=== PATIENT | male | born 1980 | race Caucasian/White ===

== ENCOUNTER 2024-11-27 01:05 | Day surgery (SDC) | payer BC, SELFPAY ==
[2024-11-17 13:49] VITALS: BMI 23.1
[2024-11-27 11:45] VITALS: BP 135/90; PULSE 60; RESP 12; TEMP 36.6; O2SAT 100
[2024-11-27] MEDS: LACTATED RINGERS 1,000 ML 150 ML IV CONT (11:53)
--- NOTE | 2024-11-27 12:08 | P.PNAN_ITS ---
Anes - Initial Pre Proc Eval Procedure: Operation Date: 11/27/24 13:00 Proposed Procedures p Screening Colonoscopy - Lazaro López MD Date/Time: 11/27/24 12:08 Surgeon: Lazaro López MD Pre Op Diagnosis: Screening Patient Data Age: 44 Gender: M Height: 1.88 m Weight: 79.8 kg Last Vital Signs Temp 36.6 C 11/27/24 11:45 Pulse 60 11/27/24 11:45 Resp 12 11/27/24 11:45 BP 135/90 11/27/24 11:45 Pulse Ox 100 11/27/24 11:45 O2 Del Method Room Air 11/27/24 11:45 Allergies Allergy/AdvReac Type Severity Reaction Status Date / Time No Known Allergies Allergy Verified 11/27/24 11:44 Home Medications ?Medication ?Instructions ?Recorded ?Confirmed ?Type No Home Medications 09/30/24 11/17/24 History Patient hx anesthesia problems: none Family hx anesthesia problems: none Results Review: All pre-operative results and documents have been reviewed as part of the pre- operative evaluation. [facility] Family History Family History Father Family history of malignant neoplasm Grandparent Carcinoma of colon Social History Social History Smoking status: Never smoker Second hand tobacco smoke exposure: No Alcohol intake: current Drinks per week: 6 Substance use: never Substance use type: does not use Current Housing: Decline to Answer Concerned About Future Housing: Decline to Answer Difficulty Paying Gas/Electric Bills: Decline to Answer Difficulty Paying for Meds: Decline to Answer Currently Unemployed: Decline to Answer Education: Decline to Answer Difficulty w/ Childcare or Family Care: Decline to Answer Living arrangements: with family Occupation/Education: occupation Gender identity (if verbalized by the patient): Male Sexual Orientation (if Verbalized by the Patient): Straight or Heterosexual Spiritual care concerns: No Agree to blood products: Yes Anes - Eval Final PreProcedure Day of Procedure 11/27/24 12:08 Patient weight: normal Heart: regular rate and rhythm Lungs: clear to auscultation Airway: Mallampati scale class II and special considerations poor opening Neurological: alert and oriented Last oral intake: >/= 8 hours ASA classification: I Emergent: no Anesthetic plan: proceed Anesthesia type and monitoring: general GIVS and standard monitoring Results Review: All pre-operative results and documents have been reviewed as part of the pre- operative evaluation. Informed Consent: The patient's anesthetic plan and its attendant risks and benefits were discussed with the patient/family/POA. Questions were solicited and answers provided to the satisfaction of the patient/family/POA.
--- NOTE | 2024-11-27 12:27 | P.HP_ITS ---
History of Present Illness History of Present Illness Consent: Risks, benefits, and alternatives have been discussed and questions answered. Patient agrees to proceed with procedure. Chief complaint: Screening Narrative: Da Tovar is a 44 year old male here for first screening colonoscopy Review of Systems Review of Systems: All systems reviewed & are unremarkable except as noted in HPI and below [facility] Past Medical History Medical History (Updated 11/27/24 @ 12:28 by Lazaro López MD) Colon cancer screening Family History Family History Father Family history of malignant neoplasm Grandparent Carcinoma of colon Social History Social History Smoking status: Never smoker Second hand tobacco smoke exposure: No Alcohol intake: current Drinks per week: 6 Substance use: never Substance use type: does not use Current Housing: Decline to Answer Concerned About Future Housing: Decline to Answer Difficulty Paying Gas/Electric Bills: Decline to Answer Difficulty Paying for Meds: Decline to Answer Currently Unemployed: Decline to Answer Education: Decline to Answer Difficulty w/ Childcare or Family Care: Decline to Answer Living arrangements: with family Occupation/Education: occupation Gender identity (if verbalized by the patient): Male Sexual Orientation (if Verbalized by the Patient): Straight or Heterosexual Spiritual care concerns: No Agree to blood products: Yes Meds Home Medications and Allergies Home Medications ?Medication ?Instructions ?Recorded ?Confirmed ?Type No Home Medications 09/30/24 11/17/24 History Allergies Allergy/AdvReac Type Severity Reaction Status Date / Time No Known Allergies Allergy Verified 11/27/24 11:44 Vital Signs Vital Signs - 24 hr 11/27/24 11:45 Temperature 97.8 F Pulse Rate 60 Respiratory Rate 12 Blood Pressure 135/90 Pulse Oximetry 100 Oxygen Delivery Room Air Exam Const: General: comfortable and no acute distress HENMT: Face/Nose/Sinus: Normal nares present Eyes: General: appearance normal, both eyes and all related structures Neck: Neck: no JVD Resp: Auscultation: clear to auscultation bilaterally Cardio: Rate: regular rate Rhythm: regular rhythm GI: Inspection: non-distended GI Palp: Yes Soft to palpation Skin: General skin exam: normal color Neuro: General: gait normal Speech: normal speech Extrem: General: normal to inspection Psych: Mental Status: mental status grossly normal Assessment and Plan Assessment and plan (1) Colon cancer screening: Code(s): Z12.11 - Encounter for screening for malignant neoplasm of colon Status: Acute Assessment and Plan: colonoscopy
--- NOTE | 2024-11-27 12:40 | S_PTH ---
PATIENT: Da Tovar LOC: [facility]#:[id number] AGE/SX: 44/M ROOM: RE11/27/[address]: Lazaro López MD : 1980 BED: DIS: 11/27/2024 SPEC #: [id number] RECD: 11/27/24 12:59 STATUS: GERRY REQ #: [id number] GILL: 11/27/24 12:[address]: Lazaro López DEPT: [facility] Surgical RECD BY: Patti Lyons ENTERED: 11/27/24 12:59 SP TYPE: Surgical OTHR DR: Lara rFancois DO Tissues: A - Colon Polypectomy Procedures: Hematoxylin and Eosin Stain Gross and Microscopic Level 4
[2024-11-27 12:44] VITALS: BP 118/74; PULSE 70; RESP 24; O2SAT 98
[2024-11-27 12:54] VITALS: BP 114/83; PULSE 45; RESP 22; O2SAT 100
[2024-11-27 13:04] VITALS: BP 121/80; PULSE 55; RESP 15; O2SAT 100
== END 2024-11-27 13:14 | disposition home or self-care (01) ==
PROVIDERS: PCP Family Medicine; Referring Provider Family Medicine; Visit Provider Internal Medicine Gastroenterology
PROC: 0DJD8ZZ Inspection of Lower Intestinal Tract, Via Natural or Artificial Opening Endoscopic (ICD-10-PCS; CPT 45378; principal; 2024-11-27 13:00)
DX: Z12.11 Encounter for screening for malignant neoplasm of colon (principal); K63.5 Polyp of colon; K64.8 Other hemorrhoids; Z80.0 Family history of malignant neoplasm of digestive organs
CPT/HCPCS: 45380; 88305; J1596; J2704; J7120